=== PATIENT | female | born 1940 | race Two or more races ===

== ENCOUNTER 2022-10-12 22:16 | Inpatient (IN) | payer OTHER ==
[~2022-10-12] VITALS: Ht 154.9 cm; Wt 56.3 kg
[~2022-10-12 22:16] MED LIST: IBU800T; SIMV40TA18
[2022-10-13] MEDS ORDERED: MORPHINE SULFATE INJ 2 MG/ml SYRG IV ONE (00:15)
[2022-10-13] MEDS ORDERED: VANCOMYCIN PER PHARMACY 0 MG IV SCH (00:45)
[2022-10-13] MEDS ORDERED: ONDANSETRON HCL 4 MG/2 ML VIAL IV PRN (00:45)
[2022-10-13] MEDS ORDERED: MORPHINE SULFATE INJ 2 MG/ml SYRG IV PRN (00:45)
[2022-10-13] MEDS ORDERED: ACETAMINOPHEN 325 MG TAB PO PRN (00:45)
[2022-10-13] MEDS ORDERED: VANCOMYCIN 1GM/250ML 250 ML IV SCH ×2 (01:00→09:00)
[2022-10-13] MEDS ORDERED: ASPI325T4 PO (03:37)
[2022-10-13] MEDS ORDERED: CLOP75TA28 PO (03:39)
[2022-10-13] MEDS ORDERED: GABA-339 PO (03:40)
[2022-10-13] MEDS ORDERED: ISOS1TAB28 PO (03:41)
[2022-10-13] MEDS ORDERED: LISI20TA56 PO (03:44)
[2022-10-13] MEDS ORDERED: METO25TA5 PO (03:46)
[2022-10-13] MEDS ORDERED: SODIENE35 RE (03:48)
[2022-10-13 05:00] VITALS: BP 147/58
[2022-10-13 05:50] LABS: Basophils # (auto) 0 10 ^3/uL (0-0.2); Eosinophils # (auto) 0.1 10 ^3/uL (0-0.8); Mean Corpuscular Volume 127.7 fL (80.0-100.0); Monocytes # (auto) 0.3 10 ^3/uL (0-1.3); Neutrophils # (auto) 6.7 10 ^3/uL (1.6-8.6)
[2022-10-13 05:52] LABS: Basophils % (auto) 0.5 % (0.0-2.0); Eosinophils % (auto) 1.7 % (0.0-7.0); Hematocrit 30.6 % (36.0-46.0); Hemoglobin 10.8 g/dL (12.2-16.2); Lymphocytes # (auto) 1.5 10 ^3/uL (0.4-5.4); Lymphocytes % (auto) 17.1 % (10.0-50.0); Mean Corpuscular Hemoglobin 45.2 pg (28.0-32.0); Mean Corpuscular Hgb Conc. 35.4 g/dL (32.0-36.0); Monocytes % (auto) 3.6 % (0.0-12.0); Neutrophils % (auto) 77.1 % (37.0-80.0); Red Cell Distribution Width 14.5 % (11.8-14.3); White Blood Cell 8.7 10^3/uL (4.4-10.8)
[2022-10-13 05:56] LABS: Urine Bacteria NONE SEEN /hpf (None Seen); Urine Blood Negative /uL (Negative); Urine Mucus FEW (None Seen); Urine Specific Gravity 1.024 (1.001-1.035); Urine WBC 9 /hpf (0 - 5)
[2022-10-13 05:58] LABS: Calcium 8.7 mg/dL (8.5-10.1); Potassium 3.9 mmol/L (3.5-5.1)
[2022-10-13] MEDS: ALBUTEROL SULF 2.5 MG/0.5ML(0.5%) NEB SOLN NEB SCH ×3 (07:12→18:38)
[2022-10-13] MEDS: cefTRIAXone 1GM/50ML D5W 50 ML IV SCH (08:42)
[2022-10-13] MEDS: HYDROcodone-ACET 5/325MG TAB PO PRN ×2 (08:43→20:03)
[2022-10-13] MEDS: ENOXAPARIN SOD 100 MG/1 ML SYRINGE SC SCH ×2 (08:45→22:14)
[2022-10-13] MEDS: hydrALAZINE HCL 10 MG TAB PO PRN (08:48)
[2022-10-13 09:00] VITALS: BP 170/87
[2022-10-13 13:00] VITALS: BP 140/71
[2022-10-13 16:09] VITALS: BP 140/71
[2022-10-13 17:00] VITALS: BP 111/62
[2022-10-13 22:00] VITALS: BP 124/63
[2022-10-13] MEDS: METOPROLOL TARTRATE 25 MG TAB PO SCH (23:10)
[2022-10-14] VITALS (7 sets, daily range): BP systolic 136–155; BP diastolic 66–81
[2022-10-14] MEDS: ALBUTEROL SULF 2.5 MG/0.5ML(0.5%) NEB SOLN NEB SCH ×3 (06:30→19:13)
[2022-10-14 07:05] LABS: Basophils # (auto) 0 10 ^3/uL (0-0.2); Lymphocytes # (auto) 1.4 10 ^3/uL (0.4-5.4); Monocytes # (auto) 0.3 10 ^3/uL (0-1.3); Neutrophils # (auto) 5.5 10 ^3/uL (1.6-8.6); Nucleated Red Blood Cells % 0.1 %
[2022-10-14 07:07] LABS: Basophils % (auto) 0.6 % (0.0-2.0); Eosinophils # (auto) 0.3 10 ^3/uL (0-0.8); Eosinophils % (auto) 3.6 % (0.0-7.0); Hematocrit 27.8 % (36.0-46.0); Hemoglobin 9.9 g/dL (12.2-16.2); Lymphocytes % (auto) 18.5 % (10.0-50.0); Mean Corpuscular Hemoglobin 45.6 pg (28.0-32.0); Mean Corpuscular Hgb Conc. 35.8 g/dL (32.0-36.0); Mean Corpuscular Volume 127.4 fL (80.0-100.0); Monocytes % (auto) 3.6 % (0.0-12.0); Neutrophils % (auto) 73.7 % (37.0-80.0); Red Blood Cells 2.18 10^6/uL (4.0-5.20); Red Cell Distribution Width 14.3 % (11.8-14.3); White Blood Cell 7.5 10^3/uL (4.4-10.8)
[2022-10-14 07:25] LABS: INR 1.06 (0.9-1.15)
[2022-10-14 07:41] LABS: Calcium 8.7 mg/dL (8.5-10.1); Potassium 3.7 mmol/L (3.5-5.1)
[2022-10-14 07:44] LABS: BUN/Creatinine Ratio 13.4 (10.0-20.0)
[2022-10-14] MEDS: cefTRIAXone 1GM/50ML D5W 50 ML IV SCH (08:51)
[2022-10-14] MEDS: METOPROLOL TARTRATE 25 MG TAB PO SCH ×3 (09:53→21:47)
[2022-10-14] MEDS: LISINOPRIL 20 MG TAB PO SCH (09:54)
[2022-10-14] MEDS: ENOXAPARIN SOD 100 MG/1 ML SYRINGE SC SCH ×2 (09:54→21:40)
[2022-10-14] MEDS ORDERED: IOHEXOL 350 MG/ML 100ML IJ ONE ×2 (12:08→15:10)
[2022-10-14] MEDS: HYDROcodone-ACET 5/325MG TAB PO PRN (13:42)
[2022-10-15 04:52] VITALS: BP 141/85
[2022-10-15] MEDS: ALBUTEROL SULF 2.5 MG/0.5ML(0.5%) NEB SOLN NEB SCH ×2 (06:00→13:12)
[2022-10-15 06:25] LABS: Basophils # (auto) 0 10 ^3/uL (0-0.2); Eosinophils # (auto) 0 10 ^3/uL (0-0.8); Lymphocytes # (auto) 1.2 10 ^3/uL (0.4-5.4); Neutrophils # (auto) 5.4 10 ^3/uL (1.6-8.6); Nucleated Red Blood Cells % 0.1 %
[2022-10-15 06:28] LABS: Basophils % (auto) 0.6 % (0.0-2.0); Eosinophils % (auto) 0.5 % (0.0-7.0); Hematocrit 28.2 % (36.0-46.0); Lymphocytes % (auto) 16.7 % (10.0-50.0); Mean Corpuscular Hemoglobin 44.9 pg (28.0-32.0); Mean Corpuscular Hgb Conc. 35.3 g/dL (32.0-36.0); Mean Corpuscular Volume 127.2 fL (80.0-100.0); Monocytes # (auto) 0.3 10 ^3/uL (0-1.3); Monocytes % (auto) 4.8 % (0.0-12.0); Neutrophils % (auto) 77.4 % (37.0-80.0); Red Blood Cells 2.22 10^6/uL (4.0-5.20); Red Cell Distribution Width 14.3 % (11.8-14.3); White Blood Cell 6.9 10^3/uL (4.4-10.8)
[2022-10-15 06:48] LABS: Potassium 3.3 mmol/L (3.5-5.1)
[2022-10-15 07:00] LABS: BUN/Creatinine Ratio 11.5 (10.0-20.0); Calcium 9.1 mg/dL (8.5-10.1)
[2022-10-15 07:45] VITALS: BP 177/85
[2022-10-15 08:00] VITALS: BP 177/85
[2022-10-15] MEDS: hydrALAZINE HCL 10 MG TAB PO PRN (08:39)
[2022-10-15] MEDS: cefTRIAXone 1GM/50ML D5W 50 ML IV SCH (08:39)
[2022-10-15] MEDS: LISINOPRIL 20 MG TAB PO SCH (09:51)
[2022-10-15] MEDS: METOPROLOL TARTRATE 25 MG TAB PO SCH (09:51)
[2022-10-15] MEDS: ENOXAPARIN SOD 100 MG/1 ML SYRINGE SC SCH (09:51)
[2022-10-15 12:00] VITALS: BP 166/81
[2022-10-15] MEDS: HYDROcodone-ACET 5/325MG TAB PO PRN (13:23)
[2022-10-15] MEDS ORDERED: APIX5TAB PO (14:49)
[2022-10-15] MEDS ORDERED: GABA-339 PO (14:49)
[2022-10-15 15:39] VITALS: BP 126/69
[2022-10-15 16:00] VITALS: BP 133/43
== END 2022-10-15 18:09 | disposition home or self-care (01) | DRG 176 ==
LOC: TELE-EAST 23:30
PROVIDERS: ADMIT Internal Medicine; ATTEND Hospitalist
DX: I26.99 Other pulmonary embolism without acute cor pulmonale (principal); J98.11 Atelectasis; I10 Essential (primary) hypertension; I25.10 Atherosclerotic heart disease of native coronary artery without angina pectoris; Z86.73 Personal history of transient ischemic attack (TIA), and cerebral infarction without residual deficits; Z79.82 Long term (current) use of aspirin
CPT/HCPCS: 36415; 71275; 80048; 81001; 84484; 85025; 85610; 85730; 93970; 94640; 97163; G0378; J0696; J2405